=== PATIENT | female | born 1945 | race African-American/Black ===

== ENCOUNTER 2021-04-11 00:17 | Emergency (ER) | payer MEDICARE ==
[~2021-04-11] VITALS: Ht 160 cm; Wt 58.1 kg
[2021-04-11 01:18] VITALS: BP 166/67
== END 2021-04-11 01:18 | disposition home or self-care (01) ==
LOC: ER 01:02
DX: T46.5X1A Poisoning by other antihypertensive drugs, accidental (unintentional), initial encounter (principal); T46.1X1A Poisoning by calcium-channel blockers, accidental (unintentional), initial encounter; I10 Essential (primary) hypertension; Z88.0 Allergy status to penicillin; Z88.8 Allergy status to other drugs, medicaments and biological substances
CPT/HCPCS: 99282